=== PATIENT | male | born 1975 ===

== ENCOUNTER 2017-01-21 14:11 | Emergency (ER) | payer OTHER ==
[2017-01-21 14:26] VITALS: BP 113/70
[2017-01-21] MEDS ORDERED: Rabies Vaccine, PCEC INJ* 1 ml IM ONE (14:46)
[2017-01-21] MEDS ORDERED: Rabies Immune Globulin(Human)* 150 UNITS/ML 2 ML VIAL (300 UNITS) IM ONE (14:49)
[2017-01-21] MEDS ORDERED: Rabies Immune Globulin(HUMAN)* 150 UNIT/ML 10 ML ONE (14:50)
[2017-01-21] MEDS ORDERED: Rabies Immune Globulin(Human)* 150 UNITS/ML 2 ML VIAL (300 UNITS) ONE (14:50)
[2017-01-21] MEDS ORDERED: Rabies Vaccine, PCEC INJ* 1 ml ONE (14:50)
--- NOTE | 2017-01-21 15:00 | UC ---
HPI BURN - HPI Summary HPI Summary: The patient comes in today for: 1. Bat exposure: Onset: 4 days ago. Palliative/provocative: Feeling well. Quality: No pain. Region: No bite. Severity: No pain. Associated symptoms: Event: The patient woke up in his bedroom with the bat flying around the room. He just called this morning and the local health department said to come in to be seen for treatment. No bite. * - History of Current Complaint Chief Complaint: UCBiteInjury Stated Complaint: BAT EXPOSURE Time Seen by Provider: 01/21/17 14:45 - Allergy/Home Medications Allergies/Adverse Reactions: Allergies Allergy/AdvReac Type Severity Reaction Status Date / Time No Known Allergies Allergy Verified 01/21/17 14:21 Home Medications: Home Medications NK [No Home Medications Reported] 01/21/17 [History Confirmed 01/21/17] PMH/Surg Hx/FS Hx/Imm Hx Previously Healthy: Yes - Surgical History Surgical History: None - Family History Known Family History: Negative: Hypertension, Diabetes - Social History Occupation: Employed Full-time Alcohol Use: None Substance Use Type: None Smoking Status (MU): Never Smoked Tobacco Review of Systems Constitutional: Negative Skin: Negative Eyes: Negative ENT: Negative Respiratory: Negative Cardiovascular: Negative Gastrointestinal: Negative Genitourinary: Negative All Other Systems Reviewed And Are Negative: Yes Physical Exam Vital Signs: Initial Vital Signs Temp 97.7 F 01/21/17 14:22 Pulse 57 01/21/17 14:22 Resp 16 01/21/17 14:22 BP 113/70 01/21/17 14:22 Pulse Ox 96 01/21/17 14:22 Burn Calculation - [place] Formula for Fluid Resuscitation Weight: 181 lb 24 -Hour Fluid Replacement: 0.0
--- NOTE | 2017-01-21 15:12 | UC ---
General HPI - HPI Summary HPI Summary: The patient comes in today for: 1. Bat exposure: Onset: 4 days ago. Palliative/provocative: Feeling well. Quality: No pain. Region: No bite. Severity: No pain. Associated symptoms: Event: The patient woke up in his bedroom with the bat flying around the room. He just called this morning and the local health department said to come in to be seen for treatment. No bite. * - History of Current Complaint Chief Complaint: UCBiteInjury Stated Complaint: BAT EXPOSURE Time Seen by Provider: 01/21/17 14:45 Hx Obtained From: Patient - Allergy/Home Medications Allergies/Adverse Reactions: Allergies Allergy/AdvReac Type Severity Reaction Status Date / Time No Known Allergies Allergy Verified 01/21/17 14:21 Home Medications: Home Medications NK [No Home Medications Reported] 01/21/17 [History Confirmed 01/21/17] PMH/Surg Hx/FS Hx/Imm Hx Previously Healthy: Yes - Surgical History Surgical History: None - Family History Known Family History: Negative: Hypertension, Diabetes - Social History Occupation: Employed Full-time Alcohol Use: None Substance Use Type: None Smoking Status (MU): Never Smoked Tobacco Review of Systems Constitutional: Negative Skin: Negative Eyes: Negative ENT: Negative Respiratory: Negative Cardiovascular: Negative All Other Systems Reviewed And Are Negative: Yes Physical Exam Triage Information Reviewed: Yes Appearance: Well-Appearing, No Pain Distress, Well-Nourished Vital Signs: Initial Vital Signs Temp 97.7 F 01/21/17 14:22 Pulse 57 01/21/17 14:22 Resp 16 01/21/17 14:22 BP 113/70 01/21/17 14:22 Pulse Ox 96 01/21/17 14:22 Vital Signs Reviewed: Yes Eyes: Positive: Conjunctiva Clear. Negative: Discharge ENT: Positive: Hearing grossly normal. Negative: Pharyngeal erythema, Nasal congestion, Nasal drainage, TM bulging, TM dull, TM red, Tonsillar swelling, Tonsillar exudate Dental: Negative: Gross Decay/Caries @, Dental Fracture @ Neck: Positive: Supple, Nontender, No Lymphadenopathy. Negative: Nuchal Rigidity Respiratory: Positive: Chest non-tender, Lungs clear, No respiratory distress, No accessory muscle use. Negative: Rhonchi, Wheezing Cardiovascular: Positive: RRR, No Murmur Abdomen Description: Positive: Nontender, No Organomegaly, Soft. Negative: Distended, Guarding Musculoskeletal: Positive: Strength Intact, ROM Intact, No Edema Neurological: Positive: Alert, Muscle Tone Normal Psychological: Positive: Age Appropriate Behavior, Consolable Skin: Negative: rashes, breakdown Course/Dx - Course Course Of Treatment: Patient to get rabies vaccine and rabies immunoglobulin. - Differential Dx - Multi-Symptom Provider Diagnoses: Rabies exposure Discharge - Discharge Plan Condition: Stable Disposition: HOME Patient Education Materials: Rabies Vaccine (ED), Rabies Immune Globulin (By injection), Rabies (ED) Referrals: No Primary Care Phys,NOPCP [Primary Care Provider] - (Please follow up with the local health department as they have requested. )
== END 2017-01-21 15:19 | disposition home or self-care (01) ==
LOC: UCEAST 14:11
DX: Z20.3 Contact with and (suspected) exposure to rabies (principal)
CPT/HCPCS: 90375; 90471; 90675; 96372; 99202; G0463